=== PATIENT | female | born 1975 | race Caucasian/White ===

== ENCOUNTER 2017-01-08 17:57 | Emergency (ER) | payer OTHER ==
[~2017-01-08] VITALS: Ht 167.6 cm; Wt 93.2 kg
[~2017-01-08 17:57] MED LIST: BUSP15 PO; DIPH50 PO; HYDR-4031 PO; IBUP-2070 PO; VENL50TA44 PO
[2017-01-08 20:24] LABS: EOSINOPHILS % (AUTO) 3.2 % (1.0-6.0); HEMATOCRIT 35.4 % (36-46); LYMPHOCYTES # (AUTO) 2.5 K/uL (1.0-4.8); LYMPHOCYTES % (AUTO) 26.8 % (22.0-44.0); MEAN CORPUSCULAR HEMOGLOBIN 30.9 pg (26.0-34.0); MEAN CORPUSCULAR VOLUME 91 fL (80-100); MONOCYTES # (AUTO) 0.7 K/uL (0.1-1.0); MONOCYTES % (AUTO) 7.6 % (2.0-9.0); NEUTROPHILS # (AUTO) 5.7 K/uL (1.8-7.7); NEUTROPHILS % (AUTO) 61.4 % (40.0-70.0); PLATELET COUNT (AUTO) 339 K/uL (150-450); RED CELL DISTRIBUTION WIDTH 13.1 % (11.5-14.5); WHITE BLOOD COUNT (AUTO) 9.3 K/uL (4.5-11.0)
[2017-01-08 20:40] LABS: ANION GAP 5 mmol/L (8-16); CALCIUM, TOTAL 8.9 mg/dL (8.8-10.5); CARBON DIOXIDE 29 mmol/L (22-29); CHLORIDE 104 mmol/L (98-107); CREATININE 0.67 mg/dL (0.60-1.30); GLOMERULAR FILTR. RATE CALC > 60 mL/min (>60); POTASSIUM 4.2 mmol/L (3.5-5.1); SODIUM SERUM 138 mmol/L (136-145); UREA NITROGEN, BLOOD 18 mg/dL (7-18)
[2017-01-08 20:51] LABS: ALANINE AMINOTRANSFERASE 37 U/L (12-78); ALBUMIN 3.9 g/dL (3.4-5.0); ASPARTATE AMINOTRANSFERASE 22 U/L (15-37); BILIRUBIN,TOTAL 0.3 mg/dL (0.1-1.0); TOTAL PROTEIN, SERUM 7.3 g/dL (6.4-8.2)
[2017-01-08 21:10] VITALS: BP 143/79
[2017-01-08] MEDS ORDERED: IBUPROFEN 600 MG TABLET ONE (21:43)
[2017-01-08] MEDS ORDERED: IBUPROFEN 600 MG TABLET PO ONE (21:45)
== END 2017-01-08 22:00 | disposition home or self-care (01) ==
LOC: EMS 17:58
DX: F41.9 Anxiety disorder, unspecified (principal); R45.851 Suicidal ideations; R51 Headache
CPT/HCPCS: 36415; 80053; 80307; 84703; 85025; 99284; G0480

== ENCOUNTER 2019-10-16 02:32 | Inpatient (IN) | payer MEDICAID ==
[~2019-10-16] VITALS: Ht 167.6 cm; Wt 94.0 kg
[2019-10-16] VITALS (14 sets, daily range): BP systolic 98–118; BP diastolic 66–81
[~2019-10-16 02:32] MED LIST changes: -BUSP15 PO; -DIPH50 PO; -HYDR-4031 PO; -IBUP-2070 PO; +QUEtiapine FUMARATE 100 MG TABLET PO PRN; -VENL50TA44 PO
[2019-10-16 08:29] LABS: HCG,QUANTITATIVE < 1 mIU/mL (0-6)
[2019-10-16] MEDS ORDERED: GuaiFENesin/D-METHORPHAN [SUGAR-FREE] 200-20MG/10 ML SYRUP UDCUP PO PRN (08:30)
[2019-10-16] MEDS ORDERED: CloNIDine HCL 0.1 MG TABLET PO PRN (08:30)
[2019-10-16] MEDS ORDERED: IBUPROFEN 400 MG TABLET PO PRN (08:30)
[2019-10-16] MEDS ORDERED: NICOTINE 14 MG/24 HOUR PATCH TD PRN (08:30)
[2019-10-16] MEDS ORDERED: ONDANSETRON HCL 4 MG TABLET PO PRN (08:30)
[2019-10-16] MEDS ORDERED: PETROLATUM,WHITE 28 GM JELLY TP PRN (08:30)
[2019-10-16] MEDS ORDERED: MAG HYDROX/AL HYDROX/SIMETH ES 30 ML SUSPENSION UDCUP PO PRN (08:30)
[2019-10-16] MEDS ORDERED: LOPERAMIDE HCL 2 MG CAPSULE PO PRN (08:30)
[2019-10-16] MEDS ORDERED: DOCUSATE SODIUM 100 MG CAPSULE PO PRN (08:30)
[2019-10-16] MEDS ORDERED: ACETAMINOPHEN 325 MG TABLET PO PRN (08:30)
[2019-10-16] MEDS ORDERED: ALBUTEROL SULFATE HFA 90 MCG/PUFF 8 GM INHALER IH PRN (08:30)
[2019-10-16] MEDS ORDERED: MAGNESIUM HYDROXIDE SUSPENSION 30 ML UDCUP PO PRN (08:30)
[2019-10-16] MEDS ORDERED: ARIP5TAB8 PO (09:23)
[2019-10-16] MEDS ORDERED: BUPR75 PO (09:23)
[2019-10-16] MEDS ORDERED: LITH300C3 PO (09:23)
[2019-10-16] MEDS ORDERED: PRAZ1 PO (09:24)
[2019-10-16] MEDS ORDERED: LITH600 PO (09:24)
[2019-10-16] MEDS ORDERED: HYDR-4031 PO (09:27)
[2019-10-16] MEDS: ARIPiprazole 5 MG TABLET PO SCH (20:02)
[2019-10-16] MEDS: LITHIUM CARBONATE 600 MG CAPSULE PO SCH (20:02)
[2019-10-17 03:10] VITALS: BP 110/74
[2019-10-17 05:26] VITALS: BP 110/74
[2019-10-17 07:06] VITALS: BP 115/77
[2019-10-17 08:25] VITALS: BP 112/69
[2019-10-17] MEDS: BuPROPion HCL 75 MG TABLET PO SCH (08:25)
[2019-10-17] MEDS: LITHIUM CARBONATE 300 MG CAPSULE PO SCH (08:25)
[2019-10-17] MEDS: HydrOXYzine PAMOATE 25 MG CAPSULE PO SCH (08:25)
[2019-10-17] MEDS: PRAZOSIN HCL 1 MG CAPSULE PO SCH (08:25)
[2019-10-17 16:00] VITALS: BP 116/74
[2019-10-17 16:24] VITALS: BP 116/74
[2019-10-17] MEDS: LORazepam 2 MG TABLET PO PRN (19:13)
[2019-10-17] MEDS: ARIPiprazole 5 MG TABLET PO SCH (20:41)
[2019-10-17] MEDS: LITHIUM CARBONATE 600 MG CAPSULE PO SCH (20:58)
[2019-10-17] MEDS: ZOLPIDEM TARTRATE 10 MG TABLET PO PRN (23:30)
[2019-10-18 05:07] VITALS: BP 110/71
[2019-10-18] MEDS: LITHIUM CARBONATE 300 MG CAPSULE PO SCH (08:31)
[2019-10-18] MEDS: PRAZOSIN HCL 1 MG CAPSULE PO SCH (08:31)
[2019-10-18] MEDS: HydrOXYzine PAMOATE 25 MG CAPSULE PO SCH (08:31)
[2019-10-18] MEDS: BuPROPion HCL 75 MG TABLET PO SCH (08:32)
[2019-10-18 08:47] VITALS: BP 128/74
[2019-10-18 19:50] VITALS: BP 105/74
[2019-10-18] MEDS: ZOLPIDEM TARTRATE 10 MG TABLET PO PRN (20:31)
[2019-10-18] MEDS: ARIPiprazole 5 MG TABLET PO SCH (20:31)
[2019-10-18] MEDS: LITHIUM CARBONATE 600 MG CAPSULE PO SCH (20:31)
[2019-10-19 02:08] VITALS: BP 101/76
[2019-10-19 06:15] VITALS: BP 101/76
[2019-10-19 08:33] VITALS: BP 102/63
[2019-10-19 08:40] VITALS: BP 110/70
[2019-10-19] MEDS: PRAZOSIN HCL 1 MG CAPSULE PO SCH (08:44)
[2019-10-19] MEDS: BuPROPion HCL 75 MG TABLET PO SCH (08:44)
[2019-10-19] MEDS: HydrOXYzine PAMOATE 25 MG CAPSULE PO SCH (08:44)
[2019-10-19] MEDS: LITHIUM CARBONATE 300 MG CAPSULE PO SCH (08:44)
[2019-10-19 12:30] VITALS: BP 110/72
[2019-10-19] MEDS: LORazepam 2 MG TABLET PO PRN (12:32)
[2019-10-19 16:14] VITALS: BP 128/84
[2019-10-19] MEDS: LITHIUM CARBONATE 600 MG CAPSULE PO SCH (20:56)
[2019-10-19] MEDS: ZOLPIDEM TARTRATE 10 MG TABLET PO PRN (20:56)
[2019-10-19] MEDS: ARIPiprazole 5 MG TABLET PO SCH (20:56)
[2019-10-20 02:31] VITALS: BP 112/72
[2019-10-20 06:05] VITALS: BP 100/68
[2019-10-20 08:28] VITALS: BP 113/64
[2019-10-20] MEDS: HydrOXYzine PAMOATE 25 MG CAPSULE PO SCH (09:04)
[2019-10-20] MEDS: BuPROPion HCL 75 MG TABLET PO SCH (09:04)
[2019-10-20] MEDS: LITHIUM CARBONATE 300 MG CAPSULE PO SCH (09:04)
[2019-10-20] MEDS: PRAZOSIN HCL 1 MG CAPSULE PO SCH (09:04)
[2019-10-20] MEDS: LORazepam 2 MG TABLET PO PRN (16:12)
[2019-10-20 16:15] VITALS: BP 119/72
[2019-10-20 16:30] VITALS: BP 119/72
[2019-10-20] MEDS: ARIPiprazole 5 MG TABLET PO SCH (20:18)
[2019-10-20] MEDS: ZOLPIDEM TARTRATE 10 MG TABLET PO PRN (20:18)
[2019-10-20] MEDS: LITHIUM CARBONATE 600 MG CAPSULE PO SCH (20:26)
[2019-10-21 00:28] VITALS: BP 105/71
[2019-10-21 00:30] VITALS: BP 105/71
[2019-10-21] MEDS: LORazepam 2 MG TABLET PO PRN ×2 (01:16→12:50)
[2019-10-21 08:14] VITALS: BP 129/59
[2019-10-21] MEDS: LITHIUM CARBONATE 300 MG CAPSULE PO SCH (08:27)
[2019-10-21] MEDS: PRAZOSIN HCL 1 MG CAPSULE PO SCH (08:27)
[2019-10-21] MEDS: BuPROPion HCL 75 MG TABLET PO SCH (08:27)
[2019-10-21] MEDS: HydrOXYzine PAMOATE 25 MG CAPSULE PO SCH (08:27)
[2019-10-21 10:09] VITALS: BP 118/72
== END 2019-10-21 15:20 | disposition home or self-care (01) | DRG 750 ==
LOC: B3A 02:32
PROVIDERS: ADMIT Psychiatry & Neurology Child & Adolescent Psychiatry; ATTEND Psychiatry & Neurology Child & Adolescent Psychiatry
DX: F25.1 Schizoaffective disorder, depressive type (principal); F90.9 Attention-deficit hyperactivity disorder, unspecified type; K21.9 Gastro-esophageal reflux disease without esophagitis; R45.851 Suicidal ideations; F10.10 Alcohol abuse, uncomplicated; F19.10 Other psychoactive substance abuse, uncomplicated; Z91.19 Patient's noncompliance with other medical treatment and regimen
CPT/HCPCS: G0480